=== PATIENT | female | born 1980 | race Caucasian/White ===

== ENCOUNTER 2022-11-30 09:43 | Day surgery (SDC) | payer BC ==
[~2022-11-30 09:43] MED LIST: Lactated Ringers 1,000 ML IV SCH; Lidocaine 2% 5 ML SDV ONE; Propofol 200 MG/20 ML SDV ONE; fentaNYL 100 MCG/2 ML SDV ONE
[2022-11-30] MEDS ORDERED: Ondansetron 4 MG/2 ML SDV ONE (11:11)
[2022-11-30] MEDS ORDERED: Glycopyrrolate 0.2 MG/ML SDV ONE (11:15)
[2022-11-30] MEDS ORDERED: Propofol 200 MG/20 ML SDV ONE (11:20)
[2022-11-30] MEDS ORDERED: Lactated Ringers 1,000 ML IV SCH (11:45)
== END 2022-11-30 12:57 | disposition home or self-care (01) ==
LOC: MW.SDS 09:43
PROVIDERS: ATTEND Surgery
DX: K29.50 Unspecified chronic gastritis without bleeding (principal); K21.00 Gastro-esophageal reflux disease with esophagitis, without bleeding; K57.30 Diverticulosis of large intestine without perforation or abscess without bleeding; F41.8 Other specified anxiety disorders; E66.9 Obesity, unspecified; M54.9 Dorsalgia, unspecified; G89.29 Other chronic pain; Z68.32 Body mass index [BMI] 32.0-32.9, adult; Z91.048 Other nonmedicinal substance allergy status; Z88.8 Allergy status to other drugs, medicaments and biological substances; Z79.899 Other long term (current) drug therapy; Z98.890 Other specified postprocedural states; Z80.0 Family history of malignant neoplasm of digestive organs; Z87.19 Personal history of other diseases of the digestive system
CPT/HCPCS: 43239; 45378; 81025; J1790; J2405; J2704; J3010; J3490; J7120; 00813